=== PATIENT | female | born 1970 | race Caucasian/White ===

== ENCOUNTER 2018-03-29 01:27 | Emergency (ER) | payer MEDICARE ==
[~2018-03-29] VITALS: Ht 175.3 cm; Wt 117.9 kg
[~2018-03-29 01:27] MED LIST: EC-NAPROSYN500 MG PO; HYDROCODONE-APA1 TAB PO; NEURONTIN600 MG PO; NORVASC10 MG PO; PREMARIN0.3 MG PO; ROBAXIN-750750 MG PO; TOPAMAX100 MG PO; XANAX1 MG PO; ZESTRIL40 MG PO
[2018-03-29 01:36] VITALS: Ht 175.3 cm; Wt 117.9 kg
[2018-03-29] MEDS ORDERED: K-TAB10 MEQ PO (01:37)
[2018-03-29] MEDS ORDERED: ESTRACE2 MG PO (01:38)
[2018-03-29] MEDS ORDERED: ZANAFLEX2 M1 PO (01:39)
[2018-03-29] MEDS ORDERED: OMEPRAZOLE20 M1 PO (01:39)
[2018-03-29] MEDS ORDERED: FUROSEMIDE40 MG PO (01:40)
[2018-03-29] MEDS ORDERED: ATARAX 25 MG TA25 MG PO (01:41)
[2018-03-29] MEDS ORDERED: EFFEXOR37.5 MG PO (01:41)
[2018-03-29 02:41] LABS: APPEARANCE HAZY (CLEAR); BILIRUBIN NEGATIVE (NEGATIVE); COLOR YELLOW (YELLOW); GLUCOSE NEGATIVE (NEGATIVE); KETONE NEGATIVE (NEGATIVE); NITRITE NEGATIVE (NEGATIVE); PH 5.5 (5.0-6.0); PROTEIN NEGATIVE (NEGATIVE); UROBILINOGEN NORMAL (NORMAL)
[2018-03-29 04:00] VITALS: BP 110/75
== END 2018-03-29 04:00 | disposition home or self-care (01) ==
LOC: D.ER 01:27
PROVIDERS: Family Medicine
DX: M54.5 Low back pain (principal); M54.31 Sciatica, right side; I10 Essential (primary) hypertension